=== PATIENT | male | born 1975 ===

== ENCOUNTER 2022-07-03 22:07 | Emergency (ER) | payer MEDICAID ==
[2022-07-03] MEDS ORDERED: Sodium Chloride 0.9% 10 ML Syringe FLUSH PRN (22:38)
[2022-07-03] MEDS ORDERED: Sodium Chloride 0.9% 1,000 ML IV ONE (22:38)
[2022-07-03] MEDS ORDERED: Sodium Chloride 0.9% 2.5 ML Syringe FLUSH PRN (22:38)
[2022-07-03 23:39] LABS: ACETAMINOPHEN <2.0 ug/mL; BLOOD UREA NITROGEN,BUN 16 mg/dL (7.0-18.0); CARBON DIOXIDE,CO2 29.1 mmol/L (21.0-32.0); CHLORIDE,CL 101 mmol/L (98-107); ESTIMATED GFR 111 mL/min (>60); GLUCOSE RANDOM 122 mg/dL (74-106); POTASSIUM,K 3.6 mmol/L (3.5-5.1); SODIUM,NA 138 mmol/L (136-148)
== END 2022-07-03 23:54 | disposition home or self-care (01) ==
LOC: EDBD 22:07 → MW.ED 22:07
DX: F20.9 Schizophrenia, unspecified (principal); F10.10 Alcohol abuse, uncomplicated; I10 Essential (primary) hypertension; Z91.030 Bee allergy status; Z79.899 Other long term (current) drug therapy
CPT/HCPCS: 36415; 80053; 80143; 80179; 80305; 80307; 81001; 81003; 83735; 84443; 85025; 96360; 99284; J7030